=== PATIENT | male | born 1940 | race Caucasian/White ===

== ENCOUNTER → 2017-01-17 | Outpatient (CLI) | payer MEDICARE, OTHER ==
[~2017-01-17] MED LIST: ASCO500T2 PO; ASPI81TA50 PO; CRESTOR40 MG PO; DOCU-109 PO; EZET10TA18 PO; FERR-26 PO; GABA-587 PO; HYDR-2762 PO; LIDOCAINE PATCH; METH-38 PO; OTHER; PANT40TA5 PO
[2017-01-17 15:01] LABS: BASO # 0.1 x10^3/uL (0.0-0.2); BASO % 1 % (0-3); EOS % 7 % (0-3); HEMATOCRIT 36.7 % (39.0-53.0); HEMOGLOBIN 12.2 g/dL (13.0-17.5); LYMPH % 28 % (24-48); MEAN CORPUSCULAR HEMOGLOBIN 28 pg (25-35); MEAN CORPUSCULAR HGB CONC 33 g/dL (31-37); MEAN CORPUSCULAR VOLUME 84 fL (79-100); MONO % 9 % (0-9); NEUT % 55 % (31-73); PLATELET COUNT 204 x10^3/uL (140-400); RED BLOOD COUNT 4.36 x10^6/uL (4.30-5.70); RED CELL DISTRIBUTION WIDTH 21.2 % (11.5-14.5); WHITE BLOOD COUNT 7.2 x10^3/uL (4.0-11.0)
--- NOTE | 2017-01-17 15:10 | EKG ---
[facility] [address] [place] [address] Test Date: 2017-01-17 Test Time: 15:14:18 Pat Name: COURTNEY HUMPHREY Department: Room: Gender: M Vet Assistant: ARUN : 1940 Requested By: ARMINDA LOO Order Number: [id number] Reading MD: Edgard Clemente Measurements Intervals [place] Rate: 55 P: 69 NM: 212 QRS: 32 QRSD: 92 T: 68 QT: 410 QTc: 394 Interpretive Statements SINUS RHYTHM T ABNORMALITY IN HIGH LATERAL LEADS. EARLY REPOLARIZATION ABNORMAL ECG RI6.01 No previous ECG available for comparison Electronically Signed On 01-18-2017 15:19:08 CDT by Edgard Clemente
[2017-01-17 15:12] LABS: ALBUMIN 3.5 g/dL (3.4-5.0); ALBUMIN/GLOBULIN RATIO 0.9 (1.0-1.7); CALCIUM 9.1 mg/dL (8.5-10.1); GFR 72.3; POTASSIUM 4.4 mmol/L (3.5-5.1); TOTAL BILIRUBIN 0.2 mg/dL (0.2-1.0); TOTAL PROTEIN 7.3 g/dL (6.4-8.2)
--- NOTE | 2017-01-17 15:13 | HP ---
ADMIT DATE: DATE OF SURGERY: 01/19/2017 Scar Read dictating for Dr. Shaun Loo. HISTORY OF PRESENT ILLNESS: The patient is a pleasant 76-year-old who is having difficulty with low back pain which he describes as severe aching pain along with pain which radiates into his right buttock, posterior thigh and leg. His problem has been present for many years. He says that over the last 2 years, the pain has become more and more severe. Standing and bending increases pain. Sitting helps. 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 He has problems with lymphoma, which has been recently diagnosed, but is felt not to be as severe problem compared to his back and leg pain. He is using lidocaine patches as well as gabapentin. He has seen a chiropractor many times over the years. He said that recently the chiropractor manipulation has not been helpful. PAST MEDICAL HISTORY: Arthritis, COPD, [place], CAD, prostate enlargement, hearing loss/ringing in the ears, shortness of air on exertion, cough. 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 FAMILY HISTORY: Cancer and CAD. SOCIAL HISTORY: He is . 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 He has no formal exercise regimen, but is active. ALLERGIES: SULFA. CURRENT MEDICATIONS: Crestor, aspirin, lidocaine, gabapentin, vitamin C, iron, pantoprazole, and . REVIEW OF SYSTEMS: A 12-point review of systems was obtained and is noncontributory except for that mentioned above. PHYSICAL EXAMINATION: NEUROSURGERY EXAMINATION: GENERAL APPEARANCE: Alert, pleasant, in no acute distress. HEAD: Normocephalic and atraumatic. SKIN: Warm and dry. MUSCULOSKELETAL: Lumbar paraspinal muscle bulk is normal, restricted range of motion of lumbar spine, iwpv-[id number] tenderness of lower lumbar spine with palpation, normal range of motion of the lower extremities bilaterally. EXTREMITIES: No clubbing, cyanosis, or edema. NEUROLOGIC: Alert and oriented x 3, normal recent and remote memory, strength 5/5 in bilateral lower extremities, sensory was intact to light touch in bilateral lower extremities, reflexes were trace and symmetric in the lower extremities bilaterally, negative straight leg raising bilaterally, forward stooped gait. IMAGING: Reviewed. I reviewed the lumbar MRI scan. On that study, there are a number of abnormalities. There appears to be diffuse changes within the bone marrow, which has been diagnosed with lymphoma. At L4-L5, there is severe central canal stenosis with AP measurement of the thecal sac at 3 mm. This appears to be due to severe ligamentum flavum hypertrophy as well as facet arthropathy and disk bulging. The problems are somewhat worse on the right as compared to the left side. At L5-S1, there is facet arthropathy and ligamentum flavum which narrows at the right lateral recess. At L2-L3, there is moderate stenosis. ASSESSMENT: 1. Spinal stenosis, lumbar region. 2. Spinal stenosis, lumbosacral region. PLAN: At this point, I feel that the patient should undergo surgery to address the lumbar spinal stenosis at L4-L5 as well as the right-sided lateral recess narrowing at L5-S1. I feel this could be done as an outpatient. He will need to obtain clearance from various physicians including Cardiology. I discussed this with him, the surgery and the technique. I spoke about the possibility of dural laceration. I discussed the nerve root injury with him as well. He understands. He would like to go ahead. We will make the arrangements. SHAUN LOO MD DR: OMAR/ailyn JOB#: [id number] / [id number]
[2017-01-17 17:39] LABS: PLT ESTIMATE ADEQUATE (ADEQUATE)
[2017-01-17 17:43] LABS: ANISOCYTOSIS MOD; HYPOCHROMIA SLIGHT; MICROCYTOSIS SLIGHT; POIKILOCYTOSIS SLIGHT
[2017-01-17 17:44] LABS: OVALOCYTES PRESENT; TEAR DROP CELLS PRESENT
== END | disposition home or self-care (01) ==
LOC: SURGPAT 13:20
PROVIDERS: ATTEND Neurological Surgery
DX: M48.06 Spinal stenosis, lumbar region (principal); M48.07 Spinal stenosis, lumbosacral region; J44.9 Chronic obstructive pulmonary disease, unspecified
CPT/HCPCS: 36415; 80053; 85025; 87641; 93005

== ENCOUNTER 2017-01-19 08:18 | Day surgery (SDC) | payer MEDICARE ==
[~2017-01-19] VITALS: Ht 185.4 cm; Wt 74.4 kg
[~2017-01-19 08:18] MED LIST changes: +BACITRACIN 50,000 UNIT in IV NORMAL SALINE 1000ML BAG 1,000 ML IRR ONE; -DOCU-109 PO; +GELATIN SPONGE SIZE 100. ONE; -HYDR-2762 PO; +HYDROmorphone 2 MG/ML VIAL IV PRN; +IV RINGERS,LACTATED 1000ML 1,000 ML IV SCH; +KETOROLAC 60 MG/2 ML INJ FOR OR. ONE; +LIDOCAINE 1% 1 ML SYRINGE. ID PRN; -METH-38 PO; +MORPHINE SULFATE 2 MG/ML DISP.SYRIN. IV PRN; +ONDANSETRON PF 4 MG/2 ML VIAL. IV PRN; +PROCHLORPERAZINE 10 MG/2 ML VIAL. IV PRN; +THROMBIN TOPICAL 20,000 UNIT SPRAY.SYRN KIT TP ONE; +fentaNYL PF VIAL 100 MCG/2 ML VIAL IV PRN
[2017-01-19] MEDS ORDERED: PROPOFOL 20 ML IV ONE (09:27)
[2017-01-19] MEDS ORDERED: DESFLURANE > 120 MINUTES IH ONE ×2 (09:27→12:44)
[2017-01-19] MEDS ORDERED: SUCCINYLCHOLINE 200 MG/10 ML VIAL. ONE (09:27)
[2017-01-19] MEDS ORDERED: REMIFENTANIL 2 MG VIAL. IV ONE (09:27)
[2017-01-19] MEDS ORDERED: MIDAZOLAM HCL/PF 2 MG/2 ML VIAL. ONE (09:27)
[2017-01-19] MEDS ORDERED: LIDOCAINE 2% PF Vial for OR 5 ML VIAL. ONE (09:28)
[2017-01-19] MEDS ORDERED: DEXAMETHASONE SOD PHOS 20 MG/5 ML VIAL. ONE (09:28)
[2017-01-19] MEDS ORDERED: PROPOFOL 50 ML IV ONE ×2 (09:28→12:43)
[2017-01-19] MEDS ORDERED: ONDANSETRON PF 4 MG/2 ML VIAL. ONE ×2 (09:28→14:01)
[2017-01-19] MEDS ORDERED: PHENYLEPHRINE 10 MG/ML VIAL. ONE (09:28)
[2017-01-19] MEDS ORDERED: ePHEDrine PF IN SALINE 50 MG/5 ML DISP.SYRIN IV ONE (11:05)
[2017-01-19] MEDS ORDERED: BUPIVAC MPF-EPI 0.5%-1:200000 30 ML VIAL. INJ ONE (11:38)
[2017-01-19] MEDS ORDERED: GELATIN SPONGE SIZE 100. ONE (13:59)
[2017-01-19] MEDS ORDERED: HYDROcodone/APAP 7.5/325MG 1 TAB TABLET PO ONE (14:00)
--- NOTE | 2017-01-19 14:18 | DISCH ---
DISCHARGE INSTRUCTIONS Condition on Discharge Condition on Discharge: Stable Activity After Discharge Activity Instructions for Disc: Activity as tolerated, Avoid exertion Other activity instructions: no driving for a week Bathing Instructions: Shower-keep dressing dry Lifting Instructions after Dis: No heavy lifting, No pulling or pushing, Do not lift >10 pounds Diet after Discharge Additional Diet Restrictions: resume home diet Wound Incision Care Wound/Incision Care: Ice to area for comfort Other wound/incision instructi: may remove dressing in 48 hrs if dry then may shower- no soaking Contacting the after DC Call your doctor for: Concerns you may have Follow-Up Follow up with: Dr. Loo's nurse in 2 weeks [phone] ARMINDA LOO MD Jan 19, 2017 14:18
[2017-01-19] MEDS ORDERED: HYDR-2762 PO (14:20)
[2017-01-19] MEDS ORDERED: DOCU-109 PO (14:20)
[2017-01-19] MEDS ORDERED: METH-38 PO (14:20)
--- NOTE | 2017-01-19 14:56 | OP ---
DATE OF SURGERY: 01/19/2017 PREOPERATIVE DIAGNOSES: Lumbar spinal stenosis with right lumbar radiculopathy, L4-L5; lateral recess stenosis with right lumbar radiculopathy, L5-S1. OPERATION PERFORMED: 1. Lumbar laminectomy, right direct L4-L5 with removal of herniated disc. 2. Hemilaminotomy and microdecompression of dura and nerve root, L5-S1, right. The operation was done with EMG monitoring, fluoroscopy, microscopic dissection. SURGEON: Shaun Loo M.D. ASSISTANT TRACK COACH: PAWAN Holly, assisted with the surgery, she assisted with the decompression and closure. OPERATIVE INDICATIONS: The patient is a very pleasant 76-year-old man who developed intractable back and right leg pain which failed conservative measures. On imaging studies, he had the above-mentioned findings which consisted of severe stenosis at L4-L5 which was much worse on the right side combined with significant lateral recess stenosis at L5-S1. He also had other problems higher, for example, there was a boqg-ni-pgghzmus stenosis at L2-L3, but I felt that the principal problems were at L4-L5 and L5-S1 and that it would be most prudent to operate at these levels. I did discuss with him the possibility that he may need further surgery in the future or he may not improve. He understood the surgery and the risks. He understood the technique of the operation and he wished to go ahead. DESCRIPTION OF PROCEDURE: Following general endotracheal anesthesia, the patient was positioned prone on the Bart frame. His lumbar region was prepped and draped in standard fashion. OPAL hose and AV impulse boots were applied for DVT prophylaxis. A microscope was draped. Fluoroscopy was draped and brought into field. Monitoring was established. Ancef 2 grams was given less than 1 hour prior to initiation of the surgery. Using fluoroscopic guidance, incision was made from the L4-L5 disc space to L5-S1 disc space. I pulled the skin cephalad and caudad and made an incision along the right side of the lumbar dorsal fascia and created an exposure from mid L4 to mid S1. I placed self-retaining retractor, brought in the microscope and used the high speed air drill and microscopic technique. I burred down a generous hemilaminotomy at L4-L5 and then tilted the table away and drilled across to the contralateral side and then working back, I drilled and exposed the ligamentum flavum throughout and also performed a partial foraminotomy. The nerve was lifted up and compressed from laterally at the level of disc and superior to this, there was a calcified mass and the dura was scarred down to the ligamentum flavum, which I had gently removed in a piecemeal fashion and then, I was able to drill out the central portion of the large calcified mass, which turned out to be a herniated disc fragment, which have become calcified. I was able to remove much of this material, but some of it I could not remove because the dura was so densely adherent, but as I worked, the region became very well decompressed, the dura pulsated nicely and the L5 root could be seen moving laterally and was well decompressed. I did perform a very generous foraminotomy. I then went down to L5-S1 and drilled a hemilaminotomy with a microscope using microscopic technique. I trimmed away thickened ligamentum flavum, exposed the dura and the exiting root. There was thickened bone and ligament over the origin of the root and I trimmed all this material away. The disc was firm. No discectomy was warranted. At this point then, I had an excellent decompression of L4-L5 and L5-S1, right. I irrigated copiously. I did use small amounts of bone wax and also bipolar cautery where necessary. I then irrigated copiously and I removed the retractor, obtained excellent hemostasis in the muscle and I closed the wound in layers with absorbable suture and the skin was closed with a 4-0 subcuticular stitch. The operation went very well. I was quite pleased with the surgery. SHAUN LOO MD DR: OMAR/ailyn JOB#: [id number] / [id number] CY
[2017-01-19 15:30] VITALS: BP 118/51
--- NOTE | 2017-01-24 12:04 | PATHOLOGY ---
PATHOLOGY REPORT * * * * * * * * FINAL DIAGNOSIS: Bone, cartilage and fibrous tissue, "lumbar decompression and disc": - Fragments of bone, cartilage and fibrous tissue consistent with disc material (clinically lumbar stenosis). (SHA:abiola; 01/24/2017) REPORT ELECTRONICALLY SIGNED BY: Greg Goncalves M.D. DATE/TIME: 01/24/2017 12:03 * * * * * * * * GROSS PATHOLOGY: The specimen is received in formalin, labeled "Courtney Humphrey and lumbar decompression and disc", are multiple irregular fragments of guerrero-white fibrous tissue and bone. The aggregate measures 4.7 x 3.5 x 1.0 cm. Test Technician section in A1 after decalcification. (SWS; 01/22/2017) INITIAL CPT CODE(S): A; 80159, 37174 Professional services performed [place] [facility] [place] [address] Technical services performed by [facility] at [address] [place] [address], [place] [address]. SPECIMEN(S) RECEIVED: A.Lumbar decopression and disc CLINICAL HISTORY: Lumbar stenosis PATIENT: COURTNEY HUMPHREY /AGE: 1 1940 (Age: 76) PATIENT #: [id number] ALT CASE #: SPECIMEN COLLECTION DATE: 01/19/2017 SPECIMEN RECEIVED DATE: 01/22/2017 [facility] - [address] [place] [address] - PHONE: [phone] * * * END OF REPORT * * *
--- NOTE | 2017-01-24 14:37 | HP ---
ADMIT DATE: 01/19/2017 DATE OF SURGERY: 01/19/2017 HISTORY OF PRESENT ILLNESS: The patient is a pleasant 76-year-old who is having difficulty with low back pain which he describes as severe aching pain along with pain which radiates into his right buttock, posterior thigh and leg. His problem has been present for many years. He says that over the last 2 years, the pain has become more and more severe. Standing and bending increases pain. Sitting helps. 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 He has problems with lymphoma, which has been recently diagnosed, but is felt not to be as severe problem compared to his back and leg pain. He is using lidocaine patches as well as gabapentin. He has seen a chiropractor many times over the years. He said that recently the chiropractor manipulation has not been helpful. PAST MEDICAL HISTORY: Arthritis, COPD, [place], CAD, prostate enlargement, hearing loss/ringing in the ears, shortness of air on exertion, cough. 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 FAMILY HISTORY: Cancer and CAD. SOCIAL HISTORY: He is . 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 He has no formal exercise regimen, but is active. ALLERGIES: SULFA. CURRENT MEDICATIONS: Crestor, aspirin, lidocaine, gabapentin, vitamin C, iron, pantoprazole. REVIEW OF SYSTEMS: A 12-point review of systems was obtained and is noncontributory except for that mentioned above. PHYSICAL EXAMINATION: NEUROSURGERY EXAMINATION: GENERAL APPEARANCE: Alert, pleasant, in no acute distress. HEAD: Normocephalic and atraumatic. SKIN: Warm and dry. MUSCULOSKELETAL: Lumbar paraspinal muscle bulk is normal, restricted range of motion of lumbar spine, icwy-zx-coavwfym tenderness of lower lumbar spine with palpation, normal range of motion of the lower extremities bilaterally. EXTREMITIES: No clubbing, cyanosis, or edema. NEUROLOGIC: Alert and oriented x 3, normal recent and remote memory, strength 5/5 in bilateral lower extremities, sensory was intact to light touch in bilateral lower extremities, reflexes were trace and symmetric in the lower extremities bilaterally, negative straight leg raising bilaterally, forward stooped gait. IMAGING: I reviewed the lumbar MRI scan. On that study, there are a number of abnormalities. At L4-L5, there is severe central canal stenosis with AP measurement of the thecal sac at 3 mm. This appears to be due to severe ligamentum flavum hypertrophy as well as facet arthropathy and disc bulging. The problems are somewhat worse on the right as compared to the left side. At L5-S1, there is facet arthropathy and ligamentum flavum which narrows at the right lateral recess. At L2-L3, there is moderate stenosis. ASSESSMENT/ PLAN: At this point, I feel that the patient should undergo surgery to address the lumbar spinal stenosis at L4-L5 as well as the right-sided lateral recess narrowing at L5-S1. I feel this could be done as an outpatient. I discussed this with him, the surgery and the technique. I spoke about the possibility of dural laceration. I discussed the nerve root injury with him as well. He understands. He would like to go ahead. We will make the arrangements. ARMINDA LOO MD DR: OMAR/ailyn JOB#: [id number] / [id number] CY
== END 2017-01-19 16:19 | disposition home or self-care (01) ==
LOC: SURG 08:18 → EDUNIT# 11:30 → SURG 16:19
PROVIDERS: ATTEND Neurological Surgery
DX: M51.16 Intervertebral disc disorders with radiculopathy, lumbar region (principal); M48.06 Spinal stenosis, lumbar region; E78.00 Pure hypercholesterolemia, unspecified; I48.91 Unspecified atrial fibrillation; I10 Essential (primary) hypertension; J44.9 Chronic obstructive pulmonary disease, unspecified; M19.91 Primary osteoarthritis, unspecified site; D64.9 Anemia, unspecified; Z87.39 Personal history of other diseases of the musculoskeletal system and connective tissue; Z86.69 Personal history of other diseases of the nervous system and sense organs; Z72.0 Tobacco use; Z88.2 Allergy status to sulfonamides
CPT/HCPCS: 63030; 63035; 76000; 88304; 88311; 97161; J0330; J0690; J1100; J1885; J2250; J2405; J2704; J3490; J7030; J7120; J2001

== ENCOUNTER → 2020-07-20 | Outpatient (CLI) | payer MEDICARE ==
[~2020-07-20] MED LIST changes: -ASCO500T2 PO; +ASCO500T4 PO; -BACITRACIN 50,000 UNIT in IV NORMAL SALINE 1000ML BAG 1,000 ML IRR ONE; +DOCU-109 PO; -EZET10TA18 PO; +EZET10TA20 PO; -FERR-26 PO; +FERR325T14 PO; -GABA-587 PO; +GABA-689 PO; -GELATIN SPONGE SIZE 100. ONE; +HYDR-2765 PO; -HYDROmorphone 2 MG/ML VIAL IV PRN; -IV RINGERS,LACTATED 1000ML 1,000 ML IV SCH; -KETOROLAC 60 MG/2 ML INJ FOR OR. ONE; -LIDOCAINE 1% 1 ML SYRINGE. ID PRN; +METH-38 PO; -MORPHINE SULFATE 2 MG/ML DISP.SYRIN. IV PRN; -ONDANSETRON PF 4 MG/2 ML VIAL. IV PRN; -PANT40TA5 PO; +PANT40TA77 PO; -PROCHLORPERAZINE 10 MG/2 ML VIAL. IV PRN; -THROMBIN TOPICAL 20,000 UNIT SPRAY.SYRN KIT TP ONE; -fentaNYL PF VIAL 100 MCG/2 ML VIAL IV PRN
--- NOTE | 2020-07-20 18:12 | KCIC ---
MRI of the lumbar spine without contrast 07/20/2020 CLINICAL HISTORY: Thymic back pain with bilateral leg pain. TECHNIQUE: Unenhanced T1-weighted and T2-weighted sagittal and axial and inversion recovery sagittal images of the lumbar spine were obtained. FINDINGS: Comparison is made to radiographs of the lumbar spine dated 07/09/2020. Very mild S-shaped curvature of the thoracolumbar spine is seen. Degenerative signal changes and loss of height are seen involving all the disks of the lumbar spine. Degenerative signal changes are seen within the marrow surrounding these discs. The conus medullaris is normal morphology, position, and signal characteristics. Rounded high signal intensity lesions are seen involving the left kidney on t he T2-weighted images. These measure 1 to 1.8 cm in size. These likely represent cysts. No further im aging evaluation is recommended. At the L1-2 disc space there is a mild generalized disc bulge. Degenerative changes are seen involvin g the facet joints bilaterally. There are small facet joint effusions bilaterally. There is mild liga mentum flavum hypertrophy bilaterally. These findings when combined result in mild central spinal can al stenosis. Mild bilateral neural foraminal stenosis is seen. At the L2-3 disc space there is a moderate generalized disc bulge. Degenerative changes are seen invo lving the facet joints, left greater than right. There is moderate ligamentum flavum hypertrophy bila terally. These findings when combined result in severe left greater than right central spinal canal s tenosis. Mild bilateral neural foraminal stenosis is seen. At the L3-4 disc space there is a moderate generalized disc bulge. Degenerative changes are seen invo lving the facet joints bilaterally. There is mild ligament flavum hypertrophy bilaterally. There are small facet joint effusions bilaterally. There is prominence of posterior epidural fat. These finding s when combined result in moderate to severe central spinal canal stenosis. Mild to moderate left gre ater the right neural foraminal stenosis is seen. At the L4-5 disc space there is a moderate generalized disc bulge. This is eccentric to the left. Deg enerative changes are seen involving the facet joints bilaterally. The patient appears to be post rig ht hemilaminotomy. Moderate left ligamentum flavum hypertrophy is seen. Findings when combined result in moderate to severe left greater than right central spinal canal stenosis moderate bilateral neura l foraminal stenosis is seen. At the L5-S1 disc space there is a mild generalized disc bulge. Degenerative changes are seen involvi ng the facet joints, right greater than left. These findings result in mild central spinal canal sten osis. Mild right neural foraminal stenosis is seen. The left neural foramen is patent. IMPRESSION: 1. Post right hemilaminotomy at L4-5. 2. The changes of degenerative disc disease are seen throughout the lumbar spine. These findings resu lt in mild central spinal canal stenosis at L1-2 and L5-S1, severe left greater than right central sp inal canal stenosis at L2-3, moderate to severe central spinal canal stenosis at L3-4 and moderate to severe left greater than right central spinal canal stenosis at L4-5. Mild bilateral neural foramina l stenosis is seen at L1-2 and L2-3. Mild to moderate left greater than right neural foraminal stenos is is seen at L3-4. Moderate bilateral neural foraminal stenosis is seen at L4-5. Mild right neural f oraminal stenosis is seen at L5-S1. Electronically signed by: Dakota Charles MD (07/20/2020 6:09 PM) [id number]
== END ==
LOC: KCIC MRI 13:44
PROVIDERS: ATTEND Family Medicine
DX: M47.817 Spondylosis without myelopathy or radiculopathy, lumbosacral region (principal); M48.07 Spinal stenosis, lumbosacral region; M51.36 Other intervertebral disc degeneration, lumbar region; M79.604 Pain in right leg; M79.605 Pain in left leg
CPT/HCPCS: 72148

== ENCOUNTER → 2020-08-19 | Outpatient (CLI) | payer MEDICARE ==
[~2020-08-19] MED LIST changes: +FINA5TAB4 PO; +IOHEXOL 180 MG/ML 10 ML VIAL. ONE; +SENN1TAB62 PO; +TAMS0.4C97 PO; +methylPREDNISolone ACETATE 40 MG/ML VIAL. ONE; +methylPREDNISolone ACETATE 80 MG/ML VIAL. ONE
--- NOTE | 2020-08-19 15:48 | PDOC1 ---
INITIAL PAIN CONSULT DATE OF SERVICE: DOS: DATE: 08/19/20 TIME: 15:39 CHIEF COMPLAINT: Chief Complaint: Low back and bilateral lower extremity pain HISTORY OF PRESENT ILLNESS: 80-year-old male presents history of pain in the low back bilateral lower extremities for about a year now not the result of any specific injury or accident that he is aware of it is getting worse with time in the low back bilaterally across the low back with radiating pain into the bilateral gluteus and bilateral thighs to the knees right and left essentially equal patient reports is worse with walking and standing especially standing for prolonged periods greater than 20 to 30 minutes, scribes pain is tingling and aching in the low back and radiating and shooting sometimes throbbing in the legs as well patient is done some stretching on his elbows had no formal physical therapies no formal chiropractor treatment or other treatments at this time. Patient did see his neurosurgeon as he has had lumbar discectomy and laminectomy before and is recommending conservative therapies at this time. Patient did have an MRI scan of the lumbar spine dated July 20, 2020 showing post right hemilaminotomy at L4-5 with changes degenerative disc disease moderate to severe central spinal canal stenosis L3-4 moderate to severe left greater than right central spinal canal stenosis L4-5, and mild bilateral neuroforaminal stenosis at L4-5 and mild right neuroforaminal stenosis at L5-S1. Patient rates his disability rating from 0-10 10 being the worst, as a 3 with family home responsibilities 7 with occupational activities 1 with self-care 2 with life support activities 0 with recreation social activity. Patient reports no loss of motor function but significant fatigability with the legs especially with standing and walking. Patient reports generally is better with laying down but occasionally it is waking him from sleep over the past few months about 1-3 times patient reports he does not affect his bowel bladder control does affect his ability to walk however is not using any assistive devices to ambulate. PAST MEDICAL HISTORY: PMH: History of lymphoma with chemotherapy now in remission, shortness of breath, COPD, arthritis, peripheral vascular disease PREVIOUS SURGERIES: Past Surgical Hx: Bilateral cataract extractions, cardiac stent placement, aortobifemoral stent placements, lumbar surgery 2014, prostate surgery 2010, partial amputation left finger 2005 CURRENT MEDICATIONS: Current Meds: Active Scripts Medications Dose Route/Sig Max Daily Dose Days Date Category Senna Plus Tablet (Sennosides/Docusate Sodium) 1 Each Tablet 1 Tab PO DAILY 20 08/19/20 Reported Flomax (Tamsulosin Hcl) 0.4 Mg Cap.er.24h 1 Cap PO DAILY 08/19/20 Reported Finasteride 5 Mg Tablet 1 Tab PO DAILY 08/19/20 Reported [Lidocaine Patch] 1 DAILY 01/17/17 Reported Ferrous Sulfate 325 Mg Tablet 1 Tab PO DAILY 01/17/17 Reported Pantoprazole Sodium (Pantoprazole Sodium) 40 Mg Tablet.dr 1 Tab PO DAILY 01/17/17 Reported Aspir-Low (Aspirin) 81 Mg Tablet.dr 1 Tab PO DAILY 01/17/17 Reported Zetia (Ezetimibe) 10 Mg Tablet 1 Tab PO HS 01/17/17 Reported Crestor (Rosuvastatin Calcium) 40 Mg Tablet 1 Tab PO HS 01/17/17 Reported ALLERGIES; Allergies: Coded Allergies: Sulfa (Sulfonamide Antibiotics) (Verified Allergy, Intermediate, Itching, 01/19/17) FAMILY HISTORY: Family Hx: Heart disease SOCIAL HISTORY: Social Hx: Patient does not drink alcohol, smokes cigarette 1 pack or less a day and has for the past 68 years. Patient not use any illegal illicit recreational drugs is lives with his spouse is a bight maker and still works part-time but is mostly retired REVIEW OF SYSTEMS: ROS: Positive for those items mentioned in history of present illness, all systems are reviewed, otherwise negative ,and are complete full and well-documented on patient's chart. PHYSICAL EXAM: VS: Blood pressure is 134/68 pulse 61 respirations 20 temperature 98.1 F 6 foot weight is 158 pounds PE: PHYSICAL EXAMINATION: GENERAL: The patient is awake, alert, oriented, appropriate, very pleasant demeanor HEENT: Shows normocephalic, atraumatic. Extraocular movements are intact and symmetrical. Oral cavity: Mucous membranes moist and pink. . NECK: Shows anterior throat supple without palpable lymphadenopathy noted. Swallow reflex symmetrical. CHEST: Shows normal on inspection. Breath sounds are clear bilaterally, distant coarse but no rales or rhonchi or wheezes. HEART: Shows S1, S2 clear. No murmurs auscultated. ABDOMEN: Soft, nontender, nondistended, obese. No palpable organomegaly is noted. No rebound or guarding demonstrated. BACK: Shows spine grossly in the midline. Normal-appearing cervical lordotic curvature. There is slightly increased thoracic kyphosis, some minor flattening of the lumbar lordotic curvature. Lumbar paraspinous muscles show symmetrical on inspection, on palpation shows some moderate tenderness diffusely throughout the upper, middle and lower distribution of the paraspinous muscles bilaterally and also into the lower thoracic paraspinous musculature, firm and tender, but without specific trigger points, without radiation of pain. The patient has good rotational motion of the lumbar spine, both laterally as well as extension and flexion without significant difficulty. No tenderness over the spinous processes, sacrum or sacroiliac regions. EXTREMITIES: Lower extremities show deep tendon reflexes 1+ in the patellar and tendo calcaneus tendons. Motor exam is 4 on a scale of 5 with right dorsiflexion, extension, quadriceps and hamstring flexion and 4/5 on the left. Peripheral pulses are 1+ posterior tibial. No peripheral edema is noted bilaterally. Lower extremities are warm and dry to touch, equal in color and appearance. Straight leg raise noted to be negative bilaterally. Gaenslen's and Dejan's maneuvers are negative as well. The patient is able to stand, stand on his toes that difficulty loss of balance, walks with a normal-appearing gait not appear to favor the right or left lower extremity significantly does not use any assistive devices to ambulate. SKIN: Shows warm and dry, good turgor. No edema. No sores, rashes or bruising throughout. IMPRESSION: Impression: 80-year-old male with 1 year history increasing pain low back bilateral lower extremities in a radicular fashion Lumbar MRI scan as noted Arthritis History of lymphoma COPD Cigarette smoking Plan: Options were discussed the patient including serve medical management physical therapies interventional techniques. Patient like to proceed with the techniques. We discussed a lumbar epidural steroid ejections description as well as anatomical models to describe the procedure. Risks discussed include not limited to bleeding infection possibly of epidural hematoma and subsequent neurological compromise, dural puncture, headache spinal cord and/or nerve damage, side effects steroid medication and portals rating pain control. Patient understands wished to proceed. Patient will return to clinic in approximate 2 weeks for follow-up, was counseled as return appointment, activity level, and side effects to be aware of. Procedure is lumbar epidural steroid injection under local anesthetic using sterile prep and drape at the L5-S1 level using C-arm fluoroscopic guidance in both AP and lateral views medications injected is 120 mg Depo-Medrol + 10 mL preservative-free normal saline and 2 mL contrast- condition at discharge is stable patient tolerated procedure well had no complications. OLYA PRIEST MD Aug 19, 2020 15:48
--- NOTE | 2020-08-19 15:49 | PDOC4 ---
PROCEDURE Procedure Patient was consented for lumbar epidural steroid injection. Risks were dis cussed including but not limited to bleeding infection possibility of epidural hematoma and subsequent neurological compromise, dural puncture, headache spinal cord and nerve damage, side effects of steroid medication, and side effects to be aware of. Patient understands wished to proceed. Procedure is lumbar epidural steroid injection under local anesthetic using sterile prep and drape at the L5-S1 level using C-arm fluoroscopic guidance in both AP and lateral views medications injected is 120 mg Depo-Medrol + 10 mL preservative-free normal saline and 2 mL contrast- condition at discharge is stable patient tolerated procedure well had no complications. OLYA PRIEST MD Aug 19, 2020 15:49
== END | disposition home or self-care (01) ==
LOC: PNCL 13:39
PROVIDERS: ATTEND Anesthesiology
DX: M54.5 Low back pain (principal); M79.605 Pain in left leg; M79.604 Pain in right leg; J44.9 Chronic obstructive pulmonary disease, unspecified; M19.90 Unspecified osteoarthritis, unspecified site; Z87.891 Personal history of nicotine dependence; Z79.899 Other long term (current) drug therapy; Z79.82 Long term (current) use of aspirin; Z98.890 Other specified postprocedural states; Z88.2 Allergy status to sulfonamides
CPT/HCPCS: 62323; J1030; J1040; Q9965

== ENCOUNTER → 2020-09-02 | Outpatient (CLI) | payer MEDICARE ==
--- NOTE | 2020-09-02 10:22 | PDOC ---
Progress Note - Pain Clinic Date of Service: DOS: DATE: 09/02/20 TIME: 10:19 Diagnosis: Dx: Lumbar radiculopathy with lumbar degenerative disc disease lumbar spinal stenosis and lumbar postlaminectomy syndrome History or Present Illness: HPI: 80-year-old male returns follow-up status post lumbar epidural injection x1. Patient reports about 40% improvement in his low back and bilateral lower extre mity pain. Patient reports he can increase his activity to greater ease and comfort walking greater distances doing household activities travel with greater ease as well patient reports is not awakening from sleep at night feels much better with sitting or laying down most he does well with standing and walking but only for a extended period greater than 20 to 30 minutes. Patient reports that sharp pain he had when he was sitting down or standing up is gone still some pain the low back and the bilateral posterior gluteus posterior thighs. Patient reports is aching pain that is shooting at times rates his pain is a 5 on a scale of 10 at all times over the past week worst average and least is a 5 today. Patient reports no new motor or sensory deficits no new bowel or bladder incontinence. Physical Exam: VS: Blood pressure is 122/59 pulse 61 respirations 18 temperature is 107.3 F height is 6 foot weight is 150 pounds PE: PHYSICAL EXAMINATION: GENERAL: The patient is awake, alert, oriented, appropriate, very pleasant demeanor HEENT: Shows normocephalic, atraumatic. Extraocular movements are intact and symmetrical. Oral cavity: Mucous membranes moist and pink. NECK: Shows anterior throat supple without palpable lymphadenopathy noted. Swallow reflex symmetrical. CHEST: Shows normal on inspection. Breath sounds are clear bilaterally coarse but clear without rales rhonchi or wheezes. HEART: Shows S1, S2 clear. No murmurs auscultated. ABDOMEN: Soft, nontender, nondistended, flat. No palpable organomegaly is noted. No rebound or guarding demonstrated. BACK: Shows spine grossly in the midline. Normal-appearing cervical lordotic curvature. There is slightly increased thoracic kyphosis, some minor flattening of the lumbar lordotic curvature. Lumbar paraspinous muscles show symmetrical on inspection, on palpation shows some moderate tenderness diffusely throughout the upper, middle and lower distribution of the paraspinous muscles without specific trigger points, without radiation of pain. The patient has good rotational motion of the lumbar spine, both laterally as well as extension and flexion without significant difficulty. No tenderness over the spinous processes, sacrum or sacroiliac regions. EXTREMITIES: Lower extremities show deep tendon reflexes 1 in the patellar and tendo calcaneus tendons. Motor exam is 4 on a scale of 5 with right dorsiflexion, extension, quadriceps and hamstring flexion and 4/5 on the left. Peripheral pulses are 1+ posterior tibial. No peripheral edema is noted bilaterally. Lower extremities are warm and dry to touch, equal in color and appearance. SKIN: Shows warm and dry, good turgor. No edema. No sores, rashes or bruising throughout. Procedure: Procedure: Options were discussed with the patient. Patient chart was reviewed his current medication regimen updated current review of systems updated today as well. We will proceed with a second in a series lumbar epidural steroid ejections today with fluoroscopic guidance. Risks were discussed including but not limited to: Bleeding, infection, possibility of epidural hematoma and subsequent neurological compromise, dural puncture, headaches, spinal cord and/or nerve damage, side effects of steroid medication, and poor results regarding pain control. Patient understands and wished to proceed. [facility], was counseled as to return appointment, activity level, and side effects to be aware of. Medication Injected: Med Injected: Procedure is lumbar epidural steroid injection under local anesthetic using sterile prep and drape at the L5-S1 level using C-arm fluoroscopic guidance in both AP and lateral views medications injected is 120 mg Depo-Medrol + 10 mL preservative-free normal saline and 2 mL contrast- condition at discharge is stable patient tolerated procedure well had no complications. Condition at Discharge: Condition at Discharge: Condition at discharge is stable, patient tolerated the procedure well and had no complications. OLYA PRIEST MD Sep 02, 2020 10:22
--- NOTE | 2020-09-02 10:23 | PDOC4 ---
PROCEDURE Procedure Patient is consented for lumbar epidural steroid injection. Risks were disc ussed including but not limited to: Bleeding, infection, possibility of epidural hematoma and subsequent neurological compromise, dural puncture, headaches, spinal cord and/or nerve damage, side effects of steroid medication, and poor results regarding pain control. Patient understands and wished to proceed. Procedure is lumbar epidural steroid injection under local anesthetic using sterile prep and drape at the L5-S1 level using C-arm fluoroscopic guidance in both AP and lateral views medications injected is 120 mg Depo-Medrol + 10 mL preservative-free normal saline and 2 mL contrast- condition at discharge is stable patient tolerated procedure well had no complications. OLYA PRIEST MD Sep 02, 2020 10:23
== END | disposition home or self-care (01) ==
LOC: PNCL 09:55
PROVIDERS: ATTEND Anesthesiology
DX: M51.16 Intervertebral disc disorders with radiculopathy, lumbar region (principal); M48.061 Spinal stenosis, lumbar region without neurogenic claudication; M96.1 Postlaminectomy syndrome, not elsewhere classified; Z79.82 Long term (current) use of aspirin; Z79.899 Other long term (current) drug therapy; Z87.891 Personal history of nicotine dependence; Z88.2 Allergy status to sulfonamides
CPT/HCPCS: 62323; J1030; J1040; Q9965